=== PATIENT | female | born 2005 | race Caucasian/White ===

== ENCOUNTER 2024-12-06 18:26 | Outpatient (CLI) | payer OTHER, SELFPAY | END 2024-12-06 18:27 | disposition home or self-care (01) | LOC: LKVREF 18:27 | PROVIDERS: PCP Family Medicine; Visit Provider Physician Assistant | DX: R19.7 Diarrhea, unspecified (principal) | CPT/HCPCS: 87086 ==

== ENCOUNTER 2024-12-07 19:13 | Outpatient (CLI) | payer OTHER, SELFPAY | END 2024-12-07 19:14 | disposition home or self-care (01) | LOC: LKVREF 19:15 | PROVIDERS: PCP Family Medicine; Visit Provider Physician Assistant | DX: R19.7 Diarrhea, unspecified (principal) | CPT/HCPCS: 83789; 87045; 87046; 87177; 87209; 87427 ==